=== PATIENT | male | born 1985 | race Caucasian/White ===

== ENCOUNTER 2021-05-24 21:07 | Inpatient (IN) ==
[2021-05-25 01:12] LABS: ABS Eosinophils 0.1 10^3/ul (0-0.6); ABS Monocytes 0.4 10^3/ul (0-0.8); ABS Neutrophils 1.6 10^3/ul (1.5-7.7); Albumin 4.5 g/dL (3.2-5.2); Albumin/Globulin Ratio 1.3 (1-3); Calcium 8.8 mg/dL (8.6-10.3); EGFR African American 133.9 (>60); EGFR Non-African American 110.7 (>60); Eosinophil % 2.4 %; Globulin 3.6 g/dL (2-4); Hematocrit 46 % (42-52); Lymphocyte % 49.5 %; Magnesium 1.8 mg/dL (1.9-2.7); Mean Corpuscular HGB Conc 35 g/dL (31-36); Mean Corpuscular Hemoglobin 36 pg (27-31); Mean Corpuscular Volume 103 fL (80-94); Nucleated Red Blood Cells % 0.1; Potassium 4.2 mmol/L (3.5-5.0); Red Blood Count 4.49 10^6 /uL (4.18-5.48); Red Cell Distribution Width 15 % (10-15); Total Bilirubin 0.6 mg/dL (0.2-1.0); Total Protein 8.1 g/dL (6.4-8.9); White Blood Count 4.1 10^3/uL (3.5-10.8)
[2021-05-25] MEDS ORDERED: Lorazepam PYXIS KEY PRN (01:49)
[2021-05-25] MEDS ORDERED: LORazepam 2 mg VIAL 1 ml IV PUSH SCH (02:00)
[2021-05-25 02:45] LABS: Mean Platelet Volume 7.6 fL (7.4-10.4); Platelet Count 87 10^3/uL (150-450)
[2021-05-25] MEDS ORDERED: Thiamine 100 MG/ML 2 ml VIAL (200 mg) IM ONE (06:05)
[2021-05-25] MEDS: Multivitamins/Minerals TAB PO SCH (10:56)
[2021-05-25] MEDS ORDERED: Ondansetron 4 mg VIAL 2 MG/ML 2 ml VIAL IV PRN (14:50)
[2021-05-25] MEDS: LORazepam 2 mg VIAL 1 ml IV PUSH SCH (15:38)
[2021-05-25] MEDS: diPHENhydraMINE 25 mg TAB PO PRN (20:30)
[2021-05-26 06:11] LABS: ABS Eosinophils 0.1 10^3/ul (0-0.6); ABS Lymphocytes 0.9 10^3/ul (1.0-4.8); ABS Monocytes 0.5 10^3/ul (0-0.8); ABS Neutrophils 2.3 10^3/ul (1.5-7.7); Eosinophil % 3.1 %; Hematocrit 42 % (42-52); Hemoglobin 14.5 g/dL (14.0-18.0); Lymphocyte % 23.9 %; Mean Corpuscular HGB Conc 35 g/dL (31-36); Mean Corpuscular Hemoglobin 36 pg (27-31); Mean Corpuscular Volume 103 fL (80-94); Mean Platelet Volume 8.8 fL (7.4-10.4); Platelet Count 67 10^3/uL (150-450); Red Blood Count 4.09 10^6 /uL (4.18-5.48); Red Cell Distribution Width 15 % (10-15); White Blood Count 3.8 10^3/uL (3.5-10.8)
[2021-05-26 06:27] LABS: EGFR African American 123.2 (>60); EGFR Non-African American 101.8 (>60); Magnesium 1.7 mg/dL (1.9-2.7); Potassium 3.7 mmol/L (3.5-5.0)
[2021-05-26] MEDS: Multivitamins/Minerals TAB PO SCH (10:01)
[2021-05-26] MEDS: LORazepam 2 mg VIAL 1 ml IV PUSH SCH ×3 (10:11→20:15)
[2021-05-26] MEDS ORDERED: Magnesium Sulfate 2 gm BAG 2 GM/50 ML BAG IVPB ONE (18:43)
[2021-05-26] MEDS: Potassium Chlor 20 meq TAB.ER PO SCH (20:14)
[2021-05-27] MEDS: diPHENhydraMINE 25 mg TAB PO PRN (01:54)
[2021-05-27] MEDS: LORazepam 2 mg VIAL 1 ml IV PUSH SCH ×4 (04:38→22:48)
[2021-05-27 05:07] LABS: ABS Eosinophils 0.1 10^3/ul (0-0.6); ABS Lymphocytes 1.1 10^3/ul (1.0-4.8); ABS Monocytes 0.5 10^3/ul (0-0.8); Eosinophil % 3.8 %; Hematocrit 45 % (42-52); Hemoglobin 15.3 g/dL (14.0-18.0); Lymphocyte % 28.5 %; Mean Corpuscular HGB Conc 34 g/dL (31-36); Mean Corpuscular Hemoglobin 35 pg (27-31); Mean Corpuscular Volume 103 fL (80-94); Platelet Count 72 10^3/uL (150-450); Red Blood Count 4.34 10^6 /uL (4.18-5.48); Red Cell Distribution Width 15 % (10-15); White Blood Count 3.8 10^3/uL (3.5-10.8)
[2021-05-27 05:24] LABS: Albumin 4.3 g/dL (3.2-5.2); Albumin/Globulin Ratio 1.3 (1-3); Calcium 9.2 mg/dL (8.6-10.3); Direct Bilirubin 0.1 mg/dL (0.03-0.18); EGFR African American 130.1 (>60); EGFR Non-African American 107.6 (>60); Globulin 3.3 g/dL (2-4); Indirect Bilirubin 0.7 mg/dL (0.3-1.0); Phosphorus 2.9 mg/dL (2.5-5.0); Potassium 3.9 mmol/L (3.5-5.0); Total Bilirubin 0.8 mg/dL (0.2-1.0); Total Protein 7.6 g/dL (6.4-8.9)
[2021-05-27] MEDS: Multivitamins/Minerals TAB PO SCH (08:36)
[2021-05-27] MEDS: Potassium Chlor 20 meq TAB.ER PO SCH (08:36)
[2021-05-27] MEDS: Enoxaparin 40 MG/0.4 ML SYR SUBCUT SCH (17:39)
[2021-05-28] MEDS: LORazepam 2 mg VIAL 1 ml IV PUSH SCH ×4 (00:25→06:05)
[2021-05-28] MEDS ORDERED: Lorazepam PYXIS KEY PRN ×3 (00:54→23:48)
[2021-05-28] MEDS ORDERED: LORazepam 2 mg VIAL 1 ml IV PUSH ONE ×2 (00:54→23:48)
[2021-05-28 04:59] LABS: ABS Eosinophils 0.1 10^3/ul (0-0.6); ABS Lymphocytes 1.4 10^3/ul (1.0-4.8); ABS Monocytes 0.6 10^3/ul (0-0.8); ABS Neutrophils 2.2 10^3/ul (1.5-7.7); Eosinophil % 3.1 %; Hematocrit 44 % (42-52); Hemoglobin 15.2 g/dL (14.0-18.0); Lymphocyte % 31.6 %; Mean Corpuscular HGB Conc 34 g/dL (31-36); Mean Corpuscular Hemoglobin 36 pg (27-31); Mean Corpuscular Volume 103 fL (80-94); Nucleated Red Blood Cells % 0.1; Platelet Count 81 10^3/uL (150-450); Red Cell Distribution Width 15 % (10-15); White Blood Count 4.5 10^3/uL (3.5-10.8)
[2021-05-28 05:09] LABS: Calcium 9.6 mg/dL (8.6-10.3); EGFR African American 109.8 (>60); EGFR Non-African American 90.8 (>60); Magnesium 1.9 mg/dL (1.9-2.7); Phosphorus 4.6 mg/dL (2.5-5.0)
[2021-05-28] MEDS: Multivitamins/Minerals TAB PO SCH (08:56)
[2021-05-28] MEDS: Potassium Chlor 20 meq TAB.ER PO SCH (08:56)
[2021-05-28] MEDS: Enoxaparin 40 MG/0.4 ML SYR SUBCUT SCH (18:31)
[2021-05-28] MEDS ORDERED: LORazepam 2 mg VIAL 1 ml IM ONE (18:46)
[2021-05-28] MEDS ORDERED: Lorazepam PYXIS KEY ONE ×2 (18:48→23:52)
[2021-05-28] MEDS: LORazepam 2 mg VIAL 1 ml ONE ×2 (19:25→19:26)
[2021-05-28] MEDS ORDERED: LORazepam 2 mg VIAL 1 ml ONE (23:58)
[2021-05-29] MEDS ORDERED: LORazepam 2 mg VIAL 1 ml IM ONE (00:06)
[2021-05-29] MEDS ORDERED: Lorazepam PYXIS KEY PRN (00:06)
[2021-05-29] MEDS: Nicotine PATCH 14 MG/24 HR PATCH TRANSDERM SCH ×2 (00:30→08:56)
[2021-05-29] MEDS: Multivitamins/Minerals TAB PO SCH (08:56)
[2021-05-29] MEDS: Potassium Chlor 20 meq TAB.ER PO SCH (08:56)
[2021-05-29] MEDS ORDERED: Nicotine Lozenge mini 2 MG LOZNG.MINI MT PRN (13:41)
[2021-05-29] MEDS: Enoxaparin 40 MG/0.4 ML SYR SUBCUT SCH (17:02)
[2021-05-30] MEDS: Nicotine PATCH 14 MG/24 HR PATCH TRANSDERM SCH (08:55)
[2021-05-30] MEDS: Multivitamins/Minerals TAB PO SCH (08:56)
[2021-05-30] MEDS: Potassium Chlor 20 meq TAB.ER PO SCH (08:57)
[2021-05-30 11:13] VITALS: BP 132/78
== END 2021-05-30 12:05 | disposition home or self-care (01) | DRG 775 ==
LOC: ED 21:07 → MEDTELE 05-25 06:04 → SUATTDRO 05-25 06:04 → MEDTELE 05-25 14:43 → MED 05-28 15:05
PROVIDERS: ADMIT Internal Medicine; ATTEND Internal Medicine

== ENCOUNTER 2021-08-20 10:50 | Inpatient (IN) ==
[2021-08-20] MEDS ORDERED: Lorazepam PYXIS KEY PRN ×4 (11:12→11:56)
[2021-08-20] MEDS: LORazepam 2 mg VIAL 1 ml IV PUSH ONE ×3 (11:24→12:35)
[2021-08-20 11:28] LABS: ABS Monocytes 0.5 10^3/ul (0-0.8); ABS Neutrophils 2.9 10^3/ul (1.5-7.7); Eosinophil % 0.1 %; Hematocrit 39 % (42-52); Hemoglobin 13.3 g/dL (14.0-18.0); Lymphocyte % 22.9 %; Mean Corpuscular HGB Conc 34 g/dL (31-36); Mean Corpuscular Hemoglobin 34 pg (27-31); Mean Corpuscular Volume 101 fL (80-94); Mean Platelet Volume 8.2 fL (7.4-10.4); Nucleated Red Blood Cells % 0.1; Platelet Count 107 10^3/uL (150-450); Red Cell Distribution Width 15 % (10-15); White Blood Count 4.5 10^3/uL (3.5-10.8)
[2021-08-20] MEDS ORDERED: LORazepam 2 mg VIAL 1 ml ONE (11:29)
[2021-08-20] MEDS ORDERED: LORazepam 2 mg VIAL 1 ml IV PUSH ONE ×3 (11:32→11:56)
[2021-08-20 11:41] LABS: INR 0.99 (0.86-1.15)
[2021-08-20 11:45] LABS: ALT 124 U/L (7-52); AST 112 U/L (13-39); Albumin 4.7 g/dL (3.2-5.2); Albumin/Globulin Ratio 1.5 (1-3); Alkaline Phosphatase 50 U/L (35-149); Anion Gap 21 mmol/L (2-11); Blood Urea Nitrogen 11 mg/dL (6-24); C Reactive Protein < 1.00 mg/L (<8.01); CO2 Carbon Dioxide 19 mmol/L (22-32); Calcium 8.8 mg/dL (8.6-10.3); Chloride 96 mmol/L (101-111); Globulin 3.2 g/dL (2-4); Glucose 86 mg/dL (70-100); Magnesium 1.7 mg/dL (1.9-2.7); Potassium 3.9 mmol/L (3.5-5.0); Sodium 136 mmol/L (135-145); Total Protein 7.9 g/dL (6.4-8.9); eGFR CKD-EPI 110.5 (>60)
[2021-08-20] MEDS ORDERED: Lactated Ringers 1000 ml BAG 1,000 ML IV ONE ×2 (11:45)
[2021-08-20] MEDS ORDERED: Magnesium Sulfate IV 1GM/100ML 1 GM/100 ML BAG IV ONE (11:56)
[2021-08-20 12:03] LABS: Troponin I 0.05 ng/mL (<0.03)
[2021-08-20 12:15] LABS: Alcohol, S 370 mg/dL (<13)
[2021-08-20 12:18] LABS: Activated Partial Thrombo Time 28.3 seconds (26.0-38.0)
[2021-08-20 12:26] LABS: TSH Ultra Thyroid Stim Horm 1.38 mcIU/mL (0.34-5.60)
[2021-08-20 12:28] LABS: Free T4 0.58 ng/dL (0.61-1.12)
[2021-08-20 12:29] LABS: Creatine Kinase 572 U/L (10-223)
[2021-08-20] MEDS: Dexmedetomidine 1,000 MCG in NS 0.9% 250 ml 240 ML IV SCH (13:55)
[2021-08-20 14:09] LABS: Urine Appearance Clear; Urine Bilirubin Negative (Negative); Urine Blood Negative (Negative); Urine Color Yellow; Urine Glucose Negative (Negative); Urine Ketones 1+ (Negative); Urine Nitrite Negative (Negative); Urine Protein 3+(>=500 mg/dL) (Negative); Urine Specific Gravity 1.019 (1.002-1.030); Urine Urobilinogen Negative (Negative)
[2021-08-20 14:11] LABS: Urine Bacteria Absent (Absent); Urine Red Blood Cell 1+(3-5/hpf) (Absent); Urine White Blood Cell Trace(0-5/hpf) (Absent)
[2021-08-20 14:42] LABS: Urine Benzodiazepine Screen Presumptive Positive (None Detect); Urine Cannabinoids Screen None Detected (None Detect); Urine Opiates Screen None Detected (None Detect)
[2021-08-20] MEDS ORDERED: Thiamine 100 MG/ML 2 ml VIAL (200 mg) IV SCH (15:00)
[2021-08-20] MEDS ORDERED: Lactated Ringers 500 ml BAG 500 ML IV ONE (15:16)
[2021-08-20] MEDS: Multivitamins/Minerals TAB PO SCH (15:18)
[2021-08-20] MEDS: Thiamine 100 MG/ML 2 ml VIAL 200 MG in NS 0.9% 100 ml BAG 100 ML IV SCH (16:17)
[2021-08-20] MEDS: Pantoprazole VIAL 40 MG VIAL IV SCH (16:17)
[2021-08-20] MEDS: Diazepam INJ CARPUJECT 5 MG/ML IV SCH (16:17)
[2021-08-20 17:08] LABS: Troponin I 0.21 ng/mL (<0.03)
[2021-08-20] MEDS: Lactated Ringers 1000 ml BAG 1,000 ML IV SCH ×3 (17:47→22:15)
[2021-08-20 20:56] LABS: Anion Gap 12 mmol/L (2-11); Blood Urea Nitrogen 8 mg/dL (6-24); CO2 Carbon Dioxide 24 mmol/L (22-32); Calcium 8.2 mg/dL (8.6-10.3); Chloride 99 mmol/L (101-111); Glucose 73 mg/dL (70-100); Magnesium 1.7 mg/dL (1.9-2.7); Potassium 3.8 mmol/L (3.5-5.0); Sodium 135 mmol/L (135-145); eGFR CKD-EPI 121.4 (>60)
[2021-08-20 21:04] LABS: Troponin I 0.13 ng/mL (<0.03)
[2021-08-20] MEDS ORDERED: Magnesium Sulfate 2 gm BAG 2 GM/50 ML BAG IVPB ONE (21:29)
[2021-08-21] MEDS: Diazepam INJ CARPUJECT 5 MG/ML IV SCH ×2 (00:27→08:32)
[2021-08-21 01:54] LABS: Troponin I 0.08 ng/mL (<0.03)
[2021-08-21] MEDS: Lactated Ringers 1000 ml BAG 1,000 ML IV SCH ×5 (03:33→19:28)
[2021-08-21 05:21] LABS: Albumin 3.8 g/dL (3.2-5.2); Albumin/Globulin Ratio 1.4 (1-3); Calcium 8.1 mg/dL (8.6-10.3); Globulin 2.7 g/dL (2-4); Magnesium 1.8 mg/dL (1.9-2.7); Phosphorus 2.9 mg/dL (2.5-5.0); Potassium 3.8 mmol/L (3.5-5.0); Total Bilirubin 0.9 mg/dL (0.2-1.0); Total Protein 6.5 g/dL (6.4-8.9); eGFR CKD-EPI 120.5 (>60)
[2021-08-21] MEDS: Dexmedetomidine 1,000 MCG in NS 0.9% 250 ml 240 ML IV SCH ×3 (05:39→23:12)
[2021-08-21 05:59] LABS: Hematocrit 36 % (42-52); Hemoglobin 12.3 g/dL (14.0-18.0); Mean Corpuscular HGB Conc 34 g/dL (31-36); Mean Corpuscular Hemoglobin 35 pg (27-31); Mean Corpuscular Volume 101 fL (80-94); Mean Platelet Volume 8.4 fL (7.4-10.4); Platelet Count 79 10^3/uL (150-450); Red Blood Count 3.56 10^6 /uL (4.18-5.48); Red Cell Distribution Width 15 % (10-15); White Blood Count 4.4 10^3/uL (3.5-10.8)
[2021-08-21] MEDS: Thiamine 100 MG/ML 2 ml VIAL 200 MG in NS 0.9% 100 ml BAG 100 ML IV SCH (08:32)
[2021-08-21] MEDS: Pantoprazole VIAL 40 MG VIAL IV SCH (08:32)
[2021-08-21] MEDS ORDERED: Potassium Chlor 20 meq TAB.ER PO ONE (08:34)
[2021-08-21] MEDS ORDERED: Magnesium Sulfate 2 gm BAG 2 GM/50 ML BAG IVPB ONE (08:34)
[2021-08-21 08:42] LABS: ABS Eosinophils 0.1 10^3/ul (0-0.6); ABS Lymphocytes 1.3 10^3/ul (1.0-4.8); ABS Monocytes 0.4 10^3/ul (0-0.8); ABS Neutrophils 2.6 10^3/ul (1.5-7.7); Eosinophil % 2.1 %; Lymphocyte % 29.8 %
[2021-08-21] MEDS: Multivitamins/Minerals TAB PO SCH (08:51)
[2021-08-21] MEDS: LORazepam 2 mg VIAL 1 ml IV PUSH SCH (21:45)
[2021-08-21] MEDS ORDERED: Diazepam INJ CARPUJECT 5 MG/ML IV ONE (23:51)
[2021-08-22] MEDS: LORazepam 2 mg VIAL 1 ml IV PUSH SCH (02:46)
[2021-08-22] MEDS: Dexmedetomidine 1,000 MCG in NS 0.9% 250 ml 240 ML IV SCH ×2 (05:55→20:35)
[2021-08-22] MEDS: Multivitamins/Minerals TAB PO SCH (07:46)
[2021-08-22] MEDS: Pantoprazole VIAL 40 MG VIAL IV SCH (07:47)
[2021-08-22] MEDS: Thiamine 100 MG/ML 2 ml VIAL 200 MG in NS 0.9% 100 ml BAG 100 ML IV SCH (07:53)
[2021-08-22 08:16] LABS: Calcium 8.8 mg/dL (8.6-10.3); Magnesium 1.8 mg/dL (1.9-2.7); Potassium 3.7 mmol/L (3.5-5.0)
[2021-08-22 08:22] LABS: Phosphorus 3.3 mg/dL (2.5-5.0)
[2021-08-22 08:33] LABS: ABS Eosinophils 0.2 10^3/ul (0-0.6); ABS Lymphocytes 1.2 10^3/ul (1.0-4.8); ABS Monocytes 0.5 10^3/ul (0-0.8); ABS Neutrophils 2.6 10^3/ul (1.5-7.7); Eosinophil % 3.4 %; Hematocrit 40 % (42-52); Hemoglobin 13.7 g/dL (14.0-18.0); Lymphocyte % 26.8 %; Mean Corpuscular HGB Conc 34 g/dL (31-36); Mean Corpuscular Hemoglobin 34 pg (27-31); Mean Corpuscular Volume 100 fL (80-94); Nucleated Red Blood Cells % 0.1; Platelet Count 87 10^3/uL (150-450); Red Blood Count 3.99 10^6 /uL (4.18-5.48); Red Cell Distribution Width 15 % (10-15); White Blood Count 4.5 10^3/uL (3.5-10.8)
[2021-08-22] MEDS: THIAMINE IV SCH (09:56)
[2021-08-22] MEDS: NS 0.9% IV SCH (09:56)
[2021-08-22] MEDS ORDERED: Potassium Chlor 20 meq TAB.ER PO ONE (18:53)
[2021-08-23] MEDS: LORazepam 2 mg VIAL 1 ml IV PUSH SCH ×4 (00:39→22:19)
[2021-08-23] MEDS: Dexmedetomidine 1,000 MCG in NS 0.9% 250 ml 240 ML IV SCH ×2 (03:52→17:00)
[2021-08-23] MEDS: Pantoprazole VIAL 40 MG VIAL IV SCH (08:40)
[2021-08-23] MEDS: Multivitamins/Minerals TAB PO SCH (08:40)
[2021-08-23] MEDS: Thiamine IV 250 MG in NS 0.9% 100 ML Q24H IV SCH (08:46)
[2021-08-23] MEDS: NS 0.9% IV SCH (10:34)
[2021-08-23] MEDS: THIAMINE IV SCH (10:34)
[2021-08-23 10:52] LABS: Albumin 4.2 g/dL (3.2-5.2); Calcium 9.3 mg/dL (8.6-10.3); Potassium 3.9 mmol/L (3.5-5.0); Total Bilirubin 0.8 mg/dL (0.2-1.0)
[2021-08-23 10:58] LABS: Albumin/Globulin Ratio 1.2 (1-3); Globulin 3.4 g/dL (2-4); Total Protein 7.6 g/dL (6.4-8.9); eGFR CKD-EPI 122.9 (>60)
[2021-08-23 10:59] LABS: ABS Eosinophils 0.2 10^3/ul (0-0.6); ABS Lymphocytes 1.5 10^3/ul (1.0-4.8); ABS Monocytes 0.6 10^3/ul (0-0.8); ABS Neutrophils 2.3 10^3/ul (1.5-7.7); Eosinophil % 3.3 %; Hematocrit 45 % (42-52); Hemoglobin 15.2 g/dL (14.0-18.0); Lymphocyte % 32.1 %; Mean Corpuscular HGB Conc 34 g/dL (31-36); Mean Corpuscular Hemoglobin 35 pg (27-31); Mean Corpuscular Volume 102 fL (80-94); Mean Platelet Volume 9.8 fL (7.4-10.4); Nucleated Red Blood Cells % 0.1; Platelet Count 91 10^3/uL (150-450); Red Blood Count 4.39 10^6 /uL (4.18-5.48); Red Cell Distribution Width 15 % (10-15); White Blood Count 4.5 10^3/uL (3.5-10.8)
[2021-08-23 11:44] LABS: Macrocytosis 2+; Platelet Morphology Large
[2021-08-23 20:50] LABS: Magnesium 1.9 mg/dL (1.9-2.7)
[2021-08-23 20:55] LABS: Phosphorus 3.9 mg/dL (2.5-5.0)
[2021-08-24] MEDS: LORazepam 2 mg VIAL 1 ml IV PUSH SCH (01:20)
[2021-08-24] MEDS: Dexmedetomidine 1,000 MCG in NS 0.9% 250 ml 240 ML IV SCH ×4 (01:37→23:21)
[2021-08-24] MEDS ORDERED: Diazepam INJ CARPUJECT 5 MG/ML IV ONE ×3 (01:40→03:33)
[2021-08-24] MEDS ORDERED: Diazepam INJ CARPUJECT 5 MG/ML IM ONE (01:40)
[2021-08-24] MEDS ORDERED: Diazepam INJ CARPUJECT 5 MG/ML ONE (01:41)
[2021-08-24] MEDS: Diazepam INJ CARPUJECT 5 MG/ML IV SCH (01:51)
[2021-08-24] MEDS ORDERED: diPHENhydraMINE IV 50 MG/ML 1 ml VIAL (BENADRYL) IM ONE (02:47)
[2021-08-24] MEDS ORDERED: LORazepam 2 mg VIAL 1 ml IM ONE (02:47)
[2021-08-24] MEDS ORDERED: Haloperidol 5 mg/ml SDV IV/IM 5 MG/ML AMP IM ONE (02:48)
[2021-08-24] MEDS ORDERED: Lorazepam PYXIS KEY ONE (02:53)
[2021-08-24] MEDS ORDERED: Ketamine HCL 50 mg/ml 10 ml VIAL (500 MG) IV ONE (04:09)
[2021-08-24] MEDS: Nicotine PATCH 21 MG/24 HR PATCH TRANSDERM SCH (08:35)
[2021-08-24] MEDS ORDERED: Ziprasidone IM 20 mg VIAL 1 ml VIAL IM ONE (08:35)
[2021-08-24] MEDS ORDERED: Lorazepam PYXIS KEY PRN (08:36)
[2021-08-24] MEDS: Thiamine IV 250 MG in NS 0.9% 100 ML Q24H IV SCH (08:37)
[2021-08-24] MEDS: Multivitamins/Minerals TAB PO SCH (09:32)
[2021-08-24] MEDS: Pantoprazole VIAL 40 MG VIAL IV SCH (10:08)
[2021-08-24 12:35] LABS: ABS Eosinophils 0.1 10^3/ul (0-0.6); ABS Lymphocytes 1.9 10^3/ul (1.0-4.8); ABS Monocytes 0.9 10^3/ul (0-0.8); ABS Neutrophils 2.3 10^3/ul (1.5-7.7); Eosinophil % 2.7 %; Hematocrit 43 % (42-52); Hemoglobin 14.4 g/dL (14.0-18.0); Lymphocyte % 36.8 %; Mean Corpuscular HGB Conc 34 g/dL (31-36); Mean Corpuscular Hemoglobin 34 pg (27-31); Mean Corpuscular Volume 102 fL (80-94); Platelet Count 125 10^3/uL (150-450); Red Blood Count 4.21 10^6 /uL (4.18-5.48); Red Cell Distribution Width 15 % (10-15); White Blood Count 5.3 10^3/uL (3.5-10.8)
[2021-08-24 12:52] LABS: Albumin 4.3 g/dL (3.2-5.2); Albumin/Globulin Ratio 1.3 (1-3); Globulin 3.3 g/dL (2-4); Magnesium 1.9 mg/dL (1.9-2.7); Phosphorus 6.4 mg/dL (2.5-5.0); Potassium 3.9 mmol/L (3.5-5.0); Total Bilirubin 0.7 mg/dL (0.2-1.0); Total Protein 7.6 g/dL (6.4-8.9); eGFR CKD-EPI 85.6 (>60)
[2021-08-24] MEDS: LORazepam 2 mg VIAL 1 ml IV PUSH PRN ×3 (13:37→23:53)
[2021-08-24] MEDS: Lactated Ringers 1000 ml BAG 1,000 ML IV SCH (18:20)
[2021-08-24] MEDS ORDERED: Dexmedetomidine 1,000 MCG in NS 0.9% 250 ml 240 ML IV SCH (23:00)
[2021-08-25] MEDS: LORazepam 2 mg VIAL 1 ml IV PUSH PRN ×4 (04:50→21:25)
[2021-08-25] MEDS ORDERED: Ziprasidone IM 20 mg VIAL 1 ml VIAL IM ONE (04:55)
[2021-08-25 06:03] LABS: ABS Eosinophils 0.1 10^3/ul (0-0.6); ABS Lymphocytes 1.9 10^3/ul (1.0-4.8); ABS Neutrophils 2.8 10^3/ul (1.5-7.7); Eosinophil % 2.1 %; Hematocrit 42 % (42-52); Hemoglobin 14.4 g/dL (14.0-18.0); Lymphocyte % 32.8 %; Mean Corpuscular HGB Conc 35 g/dL (31-36); Mean Corpuscular Hemoglobin 35 pg (27-31); Mean Corpuscular Volume 100 fL (80-94); Mean Platelet Volume 8.8 fL (7.4-10.4); Platelet Count 145 10^3/uL (150-450); Red Blood Count 4.17 10^6 /uL (4.18-5.48); Red Cell Distribution Width 14 % (10-15); White Blood Count 5.9 10^3/uL (3.5-10.8)
[2021-08-25] MEDS: Lactated Ringers 1000 ml BAG 1,000 ML IV SCH ×2 (06:13→21:25)
[2021-08-25 06:20] LABS: Albumin 4.2 g/dL (3.2-5.2); Albumin/Globulin Ratio 1.3 (1-3); Calcium 9.6 mg/dL (8.6-10.3); Globulin 3.2 g/dL (2-4); Magnesium 1.6 mg/dL (1.9-2.7); Phosphorus 4.8 mg/dL (2.5-5.0); Total Bilirubin 0.7 mg/dL (0.2-1.0); Total Protein 7.4 g/dL (6.4-8.9); eGFR CKD-EPI 116.1 (>60)
[2021-08-25] MEDS: Multivitamins/Minerals TAB PO SCH (07:40)
[2021-08-25] MEDS: Nicotine PATCH 21 MG/24 HR PATCH TRANSDERM SCH (07:45)
[2021-08-25] MEDS: Pantoprazole VIAL 40 MG VIAL IV SCH (07:45)
[2021-08-25] MEDS: Thiamine IV 250 MG in NS 0.9% 100 ML Q24H IV SCH (08:15)
[2021-08-25] MEDS ORDERED: Magnesium Sulfate 2 gm BAG 2 GM/50 ML BAG IVPB ONE (18:13)
[2021-08-25] MEDS ORDERED: LORazepam 2 mg VIAL 1 ml IV PUSH PRN (22:42)
[2021-08-26] MEDS ORDERED: Lactated Ringers 1000 ml BAG 1,000 ML IV SCH (00:09)
[2021-08-26] MEDS: LORazepam 2 mg VIAL 1 ml IV PUSH SCH ×3 (00:26→08:32)
[2021-08-26] MEDS ORDERED: diPHENhydraMINE IV 50 MG/ML 1 ml VIAL (BENADRYL) IV ONE (02:02)
[2021-08-26 06:53] LABS: ABS Lymphocytes 1.5 10^3/ul (1.0-4.8); ABS Monocytes 1.1 10^3/ul (0-0.8); ABS Neutrophils 3.4 10^3/ul (1.5-7.7); Eosinophil % 0.7 %; Hematocrit 40 % (42-52); Hemoglobin 13.7 g/dL (14.0-18.0); Lymphocyte % 24.8 %; Mean Corpuscular HGB Conc 34 g/dL (31-36); Mean Corpuscular Hemoglobin 35 pg (27-31); Mean Corpuscular Volume 101 fL (80-94); Mean Platelet Volume 8.5 fL (7.4-10.4); Platelet Count 175 10^3/uL (150-450); Red Blood Count 3.97 10^6 /uL (4.18-5.48); Red Cell Distribution Width 15 % (10-15); White Blood Count 6.1 10^3/uL (3.5-10.8)
[2021-08-26 07:14] LABS: Albumin 4.1 g/dL (3.2-5.2); Albumin/Globulin Ratio 1.3 (1-3); Calcium 9.4 mg/dL (8.6-10.3); Globulin 3.1 g/dL (2-4); Potassium 3.9 mmol/L (3.5-5.0); Total Bilirubin 0.7 mg/dL (0.2-1.0); Total Protein 7.2 g/dL (6.4-8.9); eGFR CKD-EPI 107.7 (>60)
[2021-08-26 07:17] VITALS: BP 140/70
[2021-08-26] MEDS: Multivitamins/Minerals TAB PO SCH (08:30)
[2021-08-26] MEDS: Pantoprazole VIAL 40 MG VIAL IV SCH (08:33)
[2021-08-26] MEDS: Nicotine PATCH 21 MG/24 HR PATCH TRANSDERM SCH (08:37)
[2021-08-26] MEDS: Thiamine IV 250 MG in NS 0.9% 100 ML Q24H IV SCH (11:20)
== END 2021-08-26 11:05 | disposition left against medical advice (07) | DRG 770 ==
LOC: ED 10:50 → SUATTDRO 14:19 → EDHOLD 14:19 → ICU 14:29 → MED 08-25 22:02
PROVIDERS: ADMIT Internal Medicine; ATTEND Student in an Organized Health Care Education/Training Program

== ENCOUNTER 2023-01-19 13:30 | Inpatient (IN) ==
[2023-01-19] MEDS ORDERED: Lactated Ringers 1000 ml BAG 1,000 ML IV ONE ×3 (13:36→15:04)
[2023-01-19] MEDS ORDERED: Ondansetron 4 mg VIAL 2 MG/ML 2 ml VIAL IV ONE (13:55)
[2023-01-19] MEDS ORDERED: LORazepam 2 mg VIAL 1 ml IV PUSH ONE (14:24)
[2023-01-19] MEDS ORDERED: Lorazepam PYXIS KEY PRN (14:24)
[2023-01-19 14:34] LABS: ABS Eosinophils 0.1 10^3/uL (0.0-0.5); ABS Lymphocytes 1.2 10^3/uL (1.0-4.8); ABS Monocytes 0.4 10^3/uL (0.0-1.1); ABS Neutrophils 2.6 10^3/uL (1.5-7.6); ABS Nucleated RBC 0.01 10^3/ul; Eosinophil % 1.5 %; Hematocrit 41.2 % (38-53); Lymphocyte % 28.1 %; Mean Corpuscular Hemoglobin 34.6 pg (27-33); Mean Corpuscular Hgb Conc 34.1 g/dL (31-36); Mean Corpuscular Volume 101.4 fL (80-97); Mean Platelet Volume 8.4 fL (7.5-11.2); Nucleated Red Blood Cells % 0.1 /100 WBC (0.0-0.4); Platelet Count 149 10^3/uL (150-450); Red Blood Count 4.06 10^6/uL (4.06-5.63); Red Cell Distribution Width 14.7 % (12-17); White Blood Count 4.3 10^3/uL (3.6-10.2)
[2023-01-19 15:04] LABS: Albumin 4.6 g/dL (3.2-5.2); Albumin/Globulin Ratio 1.5 (1-3); Calcium 8.9 mg/dL (8.6-10.3); Creatinine, Serum 0.84 mg/dL (0.67-1.17); Globulin 3.1 g/dL (2-4); Potassium 3.9 mmol/L (3.5-5.0); Total Bilirubin 0.9 mg/dL (0.2-1.0); Total Protein 7.7 g/dL (6.4-8.9); eGFR CKD-EPI 115.9 (>60)
[2023-01-19] MEDS ORDERED: Thiamine 100 MG/ML 2 ml VIAL (200 mg) IM ONE (16:51)
[2023-01-19] MEDS: Multivitamins/Minerals TAB PO SCH (18:41)
[2023-01-19] MEDS: Enoxaparin 40 MG/0.4 ML SYR SUBCUT SCH (19:00)
[2023-01-19] MEDS: Nicotine PATCH 21 MG/24 HR PATCH TRANSDERM SCH (22:20)
[2023-01-20] MEDS: Enoxaparin 40 MG/0.4 ML SYR SUBCUT SCH (01:33)
[2023-01-20] MEDS: Multivitamins/Minerals TAB PO SCH (07:45)
[2023-01-20] MEDS: Nicotine PATCH 21 MG/24 HR PATCH TRANSDERM SCH (07:46)
[2023-01-20 09:38] LABS: Calcium 8.7 mg/dL (8.6-10.3); Creatinine, Serum 0.71 mg/dL (0.67-1.17); Magnesium 1.9 mg/dL (1.9-2.7); Potassium 3.8 mmol/L (3.5-5.0); eGFR CKD-EPI 121.9 (>60)
[2023-01-20 15:21] LABS: Urine Benzodiazepine Screen None Detected (None Detect); Urine Cannabinoids Screen None Detected (None Detect); Urine Opiates Screen None Detected (None Detect)
[2023-01-20 17:09] LABS: Albumin 3.9 g/dL (3.2-5.2); Albumin/Globulin Ratio 1.5 (1-3); Direct Bilirubin 0.3 mg/dL (0.03-0.18); Globulin 2.6 g/dL (2-4); Indirect Bilirubin 1.1 mg/dL (0.3-1.0); Total Bilirubin 1.4 mg/dL (0.2-1.0); Total Protein 6.5 g/dL (6.4-8.9)
[2023-01-20] MEDS: NS 0.9% 1000 ml BAG 1,000 ML IV SCH (17:53)
[2023-01-21] MEDS: NS 0.9% 1000 ml BAG 1,000 ML IV SCH (01:15)
[2023-01-21] MEDS: LORazepam 2 mg VIAL 1 ml IV PUSH SCH ×2 (02:48→08:25)
[2023-01-21 06:19] LABS: ABS Eosinophils 0.2 10^3/uL (0.0-0.5); ABS Lymphocytes 2.2 10^3/uL (1.0-4.8); ABS Monocytes 0.4 10^3/uL (0.0-1.1); ABS Neutrophils 1.9 10^3/uL (1.5-7.6); ABS Nucleated RBC 0.01 10^3/ul; Hematocrit 39.2 % (38-53); Hemoglobin 13.3 g/dL (13.2-16.3); Lymphocyte % 45.6 %; Mean Corpuscular Hemoglobin 34.4 pg (27-33); Mean Corpuscular Hgb Conc 33.9 g/dL (31-36); Mean Corpuscular Volume 101.5 fL (80-97); Nucleated Red Blood Cells % 0.3 /100 WBC (0.0-0.4); Platelet Count 105 10^3/uL (150-450); Red Blood Count 3.86 10^6/uL (4.06-5.63); White Blood Count 4.7 10^3/uL (3.6-10.2)
[2023-01-21 07:07] LABS: Albumin 3.7 g/dL (3.2-5.2); Albumin/Globulin Ratio 1.3 (1-3); Calcium 8.6 mg/dL (8.6-10.3); Creatinine, Serum 0.75 mg/dL (0.67-1.17); Globulin 2.8 g/dL (2-4); Magnesium 1.7 mg/dL (1.9-2.7); Potassium 4.3 mmol/L (3.5-5.0); Total Bilirubin 1.2 mg/dL (0.2-1.0); Total Protein 6.5 g/dL (6.4-8.9); eGFR CKD-EPI 119.9 (>60)
[2023-01-21] MEDS ORDERED: Magnesium Sulfate 2 gm BAG 2 GM/50 ML BAG IVPB ONE (07:47)
[2023-01-21] MEDS: Multivitamins/Minerals TAB PO SCH (10:42)
[2023-01-21] MEDS: Nicotine PATCH 21 MG/24 HR PATCH TRANSDERM SCH (12:12)
[2023-01-21 12:43] VITALS: BP 118/73
== END 2023-01-21 12:44 | DRG 775 ==
LOC: EDHOLD 13:30 → ED 13:30 → EDHOLD 01-20 00:04
PROVIDERS: ADMIT Internal Medicine; ATTEND Internal Medicine